=== PATIENT | female | born 1975 | race Caucasian/White ===

== ENCOUNTER → 2021-02-01 | Outpatient (CLI) | payer BC ==
--- NOTE | 2021-02-01 09:07 | US ---
EXAMINATION TYPE: US abdomen complete DATE OF EXAM: 02/01/2021 COMPARISON: NONE CLINICAL HISTORY: R11.2 Nausea and vomiting. EXAM MEASUREMENTS: Liver Length: 14.0 cm Gallbladder Wall: 0.2 cm CBD: 0.2 cm Spleen: 10.9 cm Right Kidney: 9.9 x 3.7 x 4.9 cm Left Kidney: 10.4 x 4.0 x 4.4 cm Pancreas: Obscured by bowel gas Liver: wnl Gallbladder: cholelithiasis without wall thickening Evidence for sonographic Rutherford's sign: No CBD: wnl Spleen: wnl Right Kidney: No hydronephrosis or masses seen Left Kidney: No hydronephrosis or masses seen Upper IVC: wnl Abd Aorta: wnl The liver is homogenous. The intrahepatic portion of the IVC and proximal abdominal aorta are within normal limits. Common bile duct is unremarkable. The visualized portions of the pancreas are homo genous. The spleen is unremarkable. Kidneys are symmetric and free of hydronephrosis. No renal les ions are seen. IMPRESSION: Cholelithiasis.
== END | disposition home or self-care (01) ==
LOC: RADUSWWP 07:27
PROVIDERS: ATTEND Internal Medicine
DX: K80.20 Calculus of gallbladder without cholecystitis without obstruction (principal)
CPT/HCPCS: 76700

== ENCOUNTER 2021-08-10 08:44 | Day surgery (SDC) | payer BC ==
[2021-08-08 13:46] VITALS: BMI 39.5
--- NOTE | 2021-08-08 16:52 | P.HPOB ---
History of Present Illness H&P Date: 08/08/21 Chief Complaint: Dysfunctional uterine bleeding Care is a 45-year-old female that is had dysfunctional bleeding for a number of months. Earlier in the year it had gotten point where we had scheduled or plan to do endometrial sampling but at that time she declined. We are now rescheduling and she is undergoing D&C with hysteroscopy. There was suspected 1.2 cm polyp on a ultrasound in April 2021. Uterus otherwise was slightly enlarged but no other adnexal masses or changes are noted. We will plan D&C with hysteroscopy and weight result to formulate final plan of care Past Medical History Additional Past Medical History / Comment(s): Varicose veins, edema BLE. Hx very heavy menses, c/o pain LLQ abd. History of Any Multi-Drug Resistant Organisms: None Reported Past Surgical History: Section, Tubal Ligation Additional Past Surgical History / Comment(s): C-S x2 Past Anesthesia/Blood Transfusion Reactions: No Reported Reaction Smoking Status: Former smoker - Past Family History Father Family Medical History: Cancer Additional Family Medical History / Comment(s): prostate cancer Medications and Allergies Home Medications Medication Instructions Recorded Confirmed Type No Known Home Medications 08/08/21 08/08/21 History Allergies Allergy/AdvReac Type Severity Reaction Status Date / Time latex Allergy blistered Verified 08/08/21 13:29 skin Exam Osteopathic Statement: *. No significant issues noted on an osteopathic structural exam other than those noted in the History and Physical/Consult. Intake and Output 08/08/21 08/08/21 08/08/21 06:59 14:59 22:59 Other: Weight 117.934 kg - OBG Physical Exam Breast: both: normal (no masses) Abdomen: bowel sounds normal, no diffuse tenderness, no bruit present, no guarding noted, no hepatomegaly, no splenomegaly, no mass Vulva: both: normal Vagina: normal moisture, no discharge Cervix: no lesion, no discharge Uterus: normal size, normal contour Adnexa: both: normal Anus/Rectum: normal perianal skin, no rectal mass, no hemorrhoids, heme negative
--- NOTE | 2021-08-10 08:34 | P.OP ---
Date of Procedure: 08/10/21 Preoperative Diagnosis: Thickened endometrium/suspected polyp Postoperative Diagnosis: Same Procedure(s) Performed: D&C with hysteroscopy Anesthesia: [id number] Surgeon: Lance Stevenson Estimated Blood Loss (ml): 4 IV fluids (ml): 400 Pathology: other (Uterine curettings) Condition: stable Disposition: same day Operative Findings: Pathology pending Description of Procedure: Lora was taken to the operating suite where a general anesthetic was found be adequate. She was prepped and draped in the normal sterile fashion and placed in dorsal lithotomy position. Initially a speculum was inserted in vagina and the anterior lip of the cervix identified and grasped with an Allis clamp. Cervix was then dilated. Camera was inserted and the polyp was visualized. Completed camera was removed and sharp curettings of endometrium were obtained. All tissues collected, placed on Telfa and sent to pathology for evaluation. At the conclusion procedure, all incidents removed sponge, lap, needle counts were all correct 2. Age was then taken to the recovery room in stable and satisfactory condition. Plan - Discharge Summary Discharge Rx Participant: Yes New Discharge Prescriptions: New Ibuprofen [Motrin] 600 mg PO Q6HR PRN #30 tab PRN Reason: Pain Discharge Medication List Ibuprofen [Motrin] 600 mg PO Q6HR PRN #30 tab 08/10/21 [Rx] Follow up Appointment(s)/Referral(s): Lance Stevenson DO [Doctor of Osteopathic Medicine] - 2 Weeks Activity/Diet/Wound Care/Special Instructions: No Heavy lifting, limit stairs and driving, and pelvic rest. If any high temperatures, heavy bleeding, or severe pain call my office Discharge Disposition: HOME SELF-CARE
[~2021-08-10 08:44] MED LIST: DEXAMETHASONE SOD PHOSPHATE 4 MG/ML 1 ML VIAL IV ONE; DEXAMETHASONE SOD PHOSPHATE 4 MG/ML 1 ML VIAL ONE; HYDROmorphone 0.5 MG/0.5 ML SYRINGE IVP PRN; IV FLUID CONTINUATION 1,000 ML IV ONE; KETOROLAC 15 MG/ML 1 ML VIAL ONE; LACTATED RINGERS 1,000 ML IV SCH; LIDOCAINE 1% INJ 10MG/ML (20 ML MDV) ONE; MIDAZOLAM 2 MG/2 ML VIAL ONE; ONDANSETRON 4 MG/2 ML VIAL IVP ONE; ONDANSETRON 4 MG/2 ML VIAL ONE; PROPOFOL 10 MG/ML 20 ML VIAL IV ONE; Pre Op ABX Message 1 EACH MISC MISCELLANE ONE; fentaNYL (PF) 50 MCG/ML 2 ML AMP ONE
[2021-08-10 08:47] VITALS: TEMP 96.9
[2021-08-10] MEDS ORDERED: LACTATED RINGERS 1,000 ML IV ONE ×4 (09:18→13:39)
[2021-08-10 09:48] VITALS: PULSE 57
[2021-08-10 10:17] VITALS: BP 120/83; RESP 18
== END 2021-08-10 10:36 | disposition home or self-care (01) ==
LOC: OR 08:44
PROVIDERS: ATTEND Obstetrics & Gynecology
DX: R93.89 Abnormal findings on diagnostic imaging of other specified body structures (principal); I83.90 Asymptomatic varicose veins of unspecified lower extremity; Z87.891 Personal history of nicotine dependence; Z91.040 Latex allergy status
CPT/HCPCS: 81025; 58558; J2250; J1100; J2405; J2001; J3010; J1885; J2704; J1170; 88305

== ENCOUNTER → 2021-09-27 | Outpatient (CLI) | payer BC ==
[2021-09-27 13:19] VITALS: BP 140/83; PULSE 80; RESP 16; TEMP 98.1; BMI 44.6
--- NOTE | 2021-09-27 13:29 | P.BASOAP ---
Subjective Progress Note Date: 09/27/21 Principal diagnosis: Morbid obesity patient comes for evaluation today. She has not been seen in many years. The patient says that starting late 2019 she had issues of frequent vomiting, regurgitation, and nighttime cough. She says this lasted for approximately 6 months and then went for an EGD and colonoscopy. Patient was felt to have a tight band and the endoscopist apparently loosened her band. She states he took one half of the amount of fluid out. She does not recall how much fluid was in there however. Patient has gained approximately 100 pounds since that occurred. She wants fluid added back to the band. Objective - Vital Signs Vital signs: Vital Signs Temp 98.1 F 09/27/21 13:13 Pulse 80 09/27/21 13:13 Resp 16 09/27/21 13:13 BP 140/83 09/27/21 13:13 Pulse Ox Intake & Output 09/26/21 09/27/21 09/27/21 18:59 06:59 18:59 Weight 133.356 kg - Exam Abdomen: Soft, nontender, nondistended Assessment/Plan (1) Morbid obesity with BMI of 40.0-44.9, adult Narrative/Plan: Options reviewed. Will access the patient's band. We'll proceed with band adjustment. Esophagram if any further issues develop. The patient's lap band port was palpated. The site was aseptically prepped. The Herring needle was advanced into the port. The port was aspirated. A proximally 5 mL was present in the band. 2 mL was then added. Pressure was held and a sterile dressing was applied. Plan: Date: 09/27/21 Initial Weight: 145.15 kg Initial BMI: 48.6 Current Weight: 133.356 kg Current BMI: 44.6 Type of Surgery: Adjustable Gastric Banding Total Volume in Band: Previous Volume: Volume Removed: Volume Added: Band Size:
== END ==
LOC: BARWHC3 12:17
PROVIDERS: ATTEND Surgery
DX: E66.01 Morbid (severe) obesity due to excess calories (principal); Z46.51 Encounter for fitting and adjustment of gastric lap band; Z68.41 Body mass index [BMI] 40.0-44.9, adult; Z91.040 Latex allergy status
CPT/HCPCS: 99212

== ENCOUNTER 2021-09-28 22:02 | Emergency (ER) | payer BC ==
--- NOTE | 2021-09-28 22:45 | XR ---
EXAMINATION TYPE: XR chest 2V DATE OF EXAM: 09/28/2021 COMPARISON: NONE HISTORY: Chest pain TECHNIQUE: 2 views FINDINGS: Heart and mediastinum are normal. Lungs are clear. Diaphragm is normal. Bony thorax is inta ct IMPRESSION: Normal chest.
[2021-09-28 23:38] LABS: Anisocytosis Slight; Basophils # (A) 0.1 k/uL (0-0.2); Basophils % (A) 1 %; Eosinophils # (A) 0.2 k/uL (0-0.7); Eosinophils % (A) 3 %; HCT 34.5 % (34.0-46.0); Hypochromasia Moderate; Lymphocytes # (A) 2.1 k/uL (1.0-4.8); Lymphocytes % (A) 33 %; MCHC 31.9 g/dL (31.0-37.0); MCV 75.2 fL (80.0-100.0); Mean Platelet Volume 6.7; Microcytosis Moderate; Monocytes # (A) 0.4 k/uL (0-1.0); Monocytes % (A) 6 %; Neutrophils # (A) 3.6 k/uL (1.3-7.7); Neutrophils % (A) 56 %; Platelet Count 314 k/uL (150-450); RDW 17.2 % (11.5-15.5); WBC 6.4 k/uL (3.8-10.6)
[2021-09-28 23:52] LABS: INR 0.9 (<1.2)
[2021-09-28 23:53] LABS: ALT 11 U/L (4-34); AST 21 U/L (14-36); African American GFR (CKD) >90 (>60 ml/min/1.73 sqM); Albumin 3.9 g/dL (3.5-5.0); Alkaline Phosphatase 56 U/L (38-126); Anion Gap 5 mmol/L; Blood Urea Nitrogen 13 mg/dL (7-17); Calcium 9.1 mg/dL (8.4-10.2); Carbon Dioxide 26 mmol/L (22-30); Chloride 105 mmol/L (98-107); Glucose 97 mg/dL (74-99); Magnesium 2.1 mg/dL (1.6-2.3); Non-African American GFR(CKD) 86 (>60 ml/min/1.73 sqM); Partial Thromboplastin Time 23.1 sec (22.0-30.0); Potassium 4.5 mmol/L (3.5-5.1); Prothrombin Time 10.3 sec (9.0-12.0); Sodium 136 mmol/L (137-145); Total Bilirubin 0.4 mg/dL (0.2-1.3); Total Protein 7.2 g/dL (6.3-8.2)
[2021-09-29 02:17] VITALS: RESP 18
[2021-09-29] MEDS ORDERED: ASPIRIN 81 MG PO STA (02:18)
--- NOTE | 2021-09-29 02:18 | ED ---
General Adult HPI - General Chief complaint: Chest Pain Stated complaint: Chest Pain, left arm pain Time Seen by Provider: 09/29/21 02:02 Source: patient, RN notes reviewed, old records reviewed Mode of arrival: ambulatory Limitations: no limitations - History of Present Illness Initial comments: Patient is a 24-year-old female with past medical history remarkable for lap band procedure receives iron infusions presents emergency Department complaining of chest pain. She states it started at approximately 1 PM today. She received an iron infusion yesterday. She left arm pain yesterday and it progressed to some left-sided chest pain earlier today. He was intermittent with no known palliative or provocative factors. By time I evaluated the patient, she states that it is much improved. She denies any associated dyspnea, abdominal pain, nausea, vomiting, lightheadedness. States the pain is primarily near her left shoulder at this time. Denies any history of blood clots. Has no other acute complaints at this time. Was not vaccinated for COVID-19 but denies any fevers, chills, cough. I evaluated the patient and she was placed in a room, after workup was completed. - Related Data Previous Rx's Medication Instructions Recorded Ibuprofen [Motrin] 600 mg PO Q6HR PRN #30 tab 08/10/21 Allergies Allergy/AdvReac Type Severity Reaction Status Date / Time latex Allergy blistered Verified 08/08/21 13:29 skin Review of Systems ROS Statement: Those systems with pertinent positive or pertinent negative responses have been documented in the HPI. Review of Systems: CONST: Denies fever EYES: Denies blurry vision ENT: Denies nasal congestion C/V: Endorses chest pain RESP: Denies shortness of breath GI: Denies abdominal pain : Denies dysuria SKIN: Denies rash. MSK: Denies joint pain. NEURO: Denies headache ROS Other: All systems not noted in ROS Statement are negative. Past Medical History Past Medical History: No Reported History History of Any Multi-Drug Resistant Organisms: None Reported Past Surgical History: Bariatric Surgery, Section Additional Past Surgical History / Comment(s): lap band 2009 Past Anesthesia/Blood Transfusion Reactions: No Reported Reaction Past Psychological History: No Psychological Hx Reported Smoking Status: Never smoker, Unknown if ever smoked Past Alcohol Use History: None Reported Past Drug Use History: None Reported General Exam - General Exam Comments Initial Comments: General: Appears in no acute distress. HEAD: Normal with no signs of head trauma. EYES: PERRLA, EOMI, conjunctiva normal, no discharge. ENT: Hearing grossly intact, normal oropharynx. RESPIRATORY: Clear breath sounds bilaterally. No wheezes, rales, or rhonchi. C/V: Regular rate and rhythm. S1 and S2 auscultated, no edema, peripheral pulses 2+ and intact throughout. Chest pain nonreproducible on palpation. ABD: Abd is soft, nontender, nondistended EXT: Normal range of motion, no obvious deformity SKIN: No rashes or lesions observed on exposed skin. NEURO: Alert and oriented 4. No focal deficits. Limitations: no limitations Course Vital Signs 09/28/21 09/28/21 09/29/21 22:09 23:16 02:13 Temperature 98.5 F 97.5 F L Pulse Rate 70 71 Respiratory 16 18 Rate Blood Pressure 156/80 152/90 O2 Sat by Pulse 100 100 Oximetry 09/29/21 02:18 Temperature 97.8 F Pulse Rate 64 Respiratory 18 Rate Blood Pressure 141/74 O2 Sat by Pulse 98 Oximetry Medical Decision Making - Medical Decision Making Based on patient's presentation and physical exam, I'm concerned for possible cardiopulmonary etiology for her current symptoms. She presents well after the 3 hour gabriel of onset of symptoms. Therefore significant troponin should be sufficient. Laboratory studies were already obtained prior to me evaluating her. I did order her an aspirin. EKG showed no signs of acute ischemia. Chest x-ray showed no acute cardiopul monary process. Laboratory studies remarkable for negative troponin. Patient has a chronic neck acidic anemia with hemoglobin of 11.0. Remainder of the labs are unremarkable. On reevaluation, patient states that her chest pain is improved. She would like to go home. Heart score is low at 2. I believe this is reasonable. I instructed the patient to follow up with their PCP in the next 3 days. I explained that the patient should return to the emergency department if they ex perience any worsening symptoms. Strict return precautions were discussed with the patient. The patient expressed understanding of these instructions. I answered all questions that the patient had. The patient was discharged home in good condition with their prescriptions and follow up information. - Lab Data Result diagrams: 09/28/21 23:24 09/28/21 23:24 Lab Results 09/28/21 09/28/2122 Range/Units 23:24 23:24 23:24 WBC 6.4 (3.8-10.6) k/uL RBC 4.60 (3.80-5.40) m/uL Hgb 11.0 L (11.4-16.0) gm/dL Hct 34.5 (34.0-46.0) % MCV 75.2 L (80.0-100.0) fL MCH 24.0 L (25.0-35.0) pg MCHC 31.9 (31.0-37.0) g/dL RDW 17.2 H (11.5-15.5) % Plt Count 314 (150-450) k/uL MPV 6.7 Neutrophils % 56 % Lymphocytes % 33 % Monocytes % 6 % Eosinophils % 3 % Basophils % 1 % Neutrophils # 3.6 (1.3-7.7) k/uL Lymphocytes # 2.1 (1.0-4.8) k/uL Monocytes # 0.4 (0-1.0) k/uL Eosinophils # 0.2 (0-0.7) k/uL Basophils # 0.1 (0-0.2) k/uL Hypochromasia Moderate Anisocytosis Slight Microcytosis Moderate PT 10.3 (9.0-12.0) sec INR 0.9 (<1.2) APTT 23.1 (22.0-30.0) sec Sodium 136 L (137-145) mmol/L Potassium 4.5 (3.5-5.1) mmol/L Chloride 105 (98-107) mmol/L Carbon Dioxide 26 (22-30) mmol/L Anion Gap 5 mmol/L BUN 13 (7-17) mg/dL Creatinine 0.83 (0.52-1.04) mg/dL Est GFR (CKD-EPI)AfAm >90 (>60 ml/min/1.73 sqM) Est GFR (CKD-EPI)NonAf 86 (>60 ml/min/1.73 sqM) Glucose 97 (74-99) mg/dL Calcium 9.1 (8.4-10.2) mg/dL Magnesium 2.1 (1.6-2.3) mg/dL Total Bilirubin 0.4 (0.2-1.3) mg/dL AST 21 (14-36) U/L ALT 11 (4-34) U/L Alkaline Phosphatase 56 (38-126) U/L Troponin I (0.000-0.034) ng/mL Total Protein 7.2 (6.3-8.2) g/dL Albumin 3.9 (3.5-5.0) g/dL 09/28/21 Range/Units 23:24 WBC (3.8-10.6) k/uL RBC (3.80-5.40) m/uL Hgb (11.4-16.0) gm/dL Hct (34.0-46.0) % MCV (80.0-100.0) fL MCH (25.0-35.0) pg MCHC (31.0-37.0) g/dL RDW (11.5-15.5) % Plt Count (150-450) k/uL MPV Neutrophils % % Lymphocytes % % Monocytes % % Eosinophils % % Basophils % % Neutrophils # (1.3-7.7) k/uL Lymphocytes # (1.0-4.8) k/uL Monocytes # (0-1.0) k/uL Eosinophils # (0-0.7) k/uL Basophils # (0-0.2) k/uL Hypochromasia Anisocytosis Microcytosis PT (9.0-12.0) sec INR (<1.2) APTT (22.0-30.0) sec Sodium (137-145) mmol/L Potassium (3.5-5.1) mmol/L Chloride (98-107) mmol/L Carbon Dioxide (22-30) mmol/L Anion Gap mmol/L BUN (7-17) mg/dL Creatinine (0.52-1.04) mg/dL Est GFR (CKD-EPI)AfAm (>60 ml/min/1.73 sqM) Est GFR (CKD-EPI)NonAf (>60 ml/min/1.73 sqM) Glucose (74-99) mg/dL Calcium (8.4-10.2) mg/dL Magnesium (1.6-2.3) mg/dL Total Bilirubin (0.2-1.3) mg/dL AST (14-36) U/L ALT (4-34) U/L Alkaline Phosphatase (38-126) U/L Troponin I <0.012 (0.000-0.034) ng/mL Total Protein (6.3-8.2) g/dL Albumin (3.5-5.0) g/dL - EKG Data -: EKG Interpreted by Me EKG Comments: 12-lead Electrocardiogram Interpretation Note EKG was reviewed and interpreted by myself. 12-lead ECG performed at 2314 is interpreted by me as revealing normal sinus rhythm at a rate of 69 beats per minute. [place] is normal. MO interval is 169 ms, QRS duration is 85 ms, QTc is 411 ms.. There is an isolated T-wave inversion in lead V2 with no reciprocal changes or other ST segment or T-wave changes.. R wave progression across the precordium was satisfactory. By my interpretation this EKG is non-diagnostic for acute ischemia. Disposition Clinical Impression: Chest pain of unknown etiology Disposition: HOME SELF-CARE Condition: Good Instructions (If sedation given, give patient instructions): Chest Pain (ED) Is patient prescribed a controlled substance at d/c from ED?: No Referrals: Tamika Elise MD [Primary Care Provider] - 1-2 days
[2021-09-29 02:26] VITALS: BP 141/74; PULSE 64; TEMP 97.8
== END 2021-09-29 02:34 | disposition home or self-care (01) ==
LOC: EC 22:02
DX: R07.89 Other chest pain (principal); Z79.1 Long term (current) use of non-steroidal anti-inflammatories (NSAID)
CPT/HCPCS: 36415; 71046; 80053; 83735; 84484; 85025; 85610; 85730; 93005; 99285

== ENCOUNTER → 2021-10-04 | Outpatient (CLI) | payer BC ==
[2021-10-04 08:36] VITALS: BP 117/65; PULSE 53; TEMP 98; BMI 51.5
--- NOTE | 2021-10-04 08:46 | P.BASOAP ---
Subjective Progress Note Date: 10/04/21 Principal diagnosis: Chest pain 46-year-old female known to our service. One week ago the patient had a lap band adjustment. This was the first lap band fill that she had had many years. We added 2 mL for a total of 7 mL at that time. Patient says she also had an iron infusion perform a day. Later that evening the patient had mild chest pain and that pain radiated to her left arm and she started having involuntary spasms of her finger and hand on the left side. Went to the ER for evaluation. She was discharged following that. The patient says she does notice improved restriction. She states it does not feel too tight. No nausea or vomiting, no regurgitation, no night cough, no food getting caught at all. Patient has lost 3 pounds. Objective - Vital Signs Vital signs: Vital Signs Temp 98 F 10/04/21 08:34 Pulse 53 L 10/04/21 08:34 Resp BP 117/65 10/04/21 08:34 Pulse Ox Intake & Output 10/03/21 10/04/21 10/04/21 18:59 06:59 18:59 Weight 131.995 kg - Exam Abdomen: Soft, nontender, nondistended Assessment/Plan (1) Morbid obesity with BMI of 40.0-44.9, adult Narrative/Plan: Patient and I discussed the options. Etiology for the patient's symptoms unclear. I did offer loosening the band. After discussion we decided to keep band where it is since the restriction seems to be improved and she is not having any other symptoms. She will contact me with any changes. Plan: Date: 10/04/21 Initial Weight: 145.15 kg Initial BMI: 56.7 Current Weight: 131.995 kg Current BMI: 51.5 Type of Surgery: Total Volume in Band: 7 Previous Volume: Volume Removed: Volume Added: Band Size:
== END ==
LOC: BARWHC3 07:19
PROVIDERS: ATTEND Surgery
DX: E66.01 Morbid (severe) obesity due to excess calories (principal); Z98.84 Bariatric surgery status; Z68.43 Body mass index [BMI] 50.0-59.9, adult; Z91.040 Latex allergy status
CPT/HCPCS: 99211

== ENCOUNTER → 2023-01-16 | Outpatient (CLI) | payer BC ==
[2023-01-16 13:41] VITALS: BP 128/84; PULSE 84; TEMP 98.3; BMI 41.1
--- NOTE | 2023-01-16 14:27 | P.BASOAP ---
Subjective Progress Note Date: 01/16/23 Principal diagnosis: Morbid obesity Patient here for reevaluation. Was last seen in September of last year. At the time we considered loosening her band because she was having some chest pain. She did not want fluid removed and felt the restriction was good at the time. Her symptoms improved around that same time. Today she comes back in after losing 21 pounds. Says she is now having some regurgitation a few times per month. Some bad heartburn recently. Patient is frustrated that she has not been able to lose more weight. No recent upper GI. Objective - Vital Signs Vital signs: Vital Signs Temp 98.3 F 01/16/23 13:33 Pulse 84 01/16/23 13:33 Resp BP 128/84 01/16/23 13:33 Pulse Ox FiO2 Intake & Output 01/15/23 01/16/23 01/16/23 18:59 06:59 18:59 Weight 122.561 kg - Exam Abdomen: Soft, nontender, nondistended Assessment/Plan (1) Morbid obesity with BMI of 40.0-44.9, adult Narrative/Plan: Patient with worsening reflux. Options reviewed with patient. Will proceed with loosening of the band at this time. We'll order a barium swallow as well. Patient I discussed the options of band removal and conversion to gastric bypass. Patient states she would like to avoid any further surgery. 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 The patient's lap band port was palpated. The site was aseptically prepped. The Herring needle was advanced into the port. A total of 1 ml of fluid was removed. The patient has a total of 6 mL left. Pressure was held and a sterile dressing was applied. Plan: Date: 01/16/23 Initial Weight: 145.15 kg Initial BMI: 48.6 Current Weight: 122.561 kg Current BMI: 41.1 Type of Surgery: Total Volume in Band: 7 Previous Volume: Volume Removed: Volume Added: Band Size:
--- NOTE | 2023-01-16 15:11 | FL ---
EXAMINATION TYPE: FL barium swallow DATE OF EXAM: 01/16/2023 3:01 PM COMPARISON: 07/29/2010 CLINICAL INDICATION:Female, 47 years old with history of R13.10 DYSPHAGIA, UNSPECIFIED; TECHNIQUE: The procedure was explained and patient history elicited. All patient questions were ans wered prior to start of procedure. Multiple spot fluoroscopic images of the esophagus were obtained a fter the oral ingestion of effervescent crystals and liquid barium as the contrast agent. Fluoroscopic time: 12 seconds Fluoroscopic images: 0 Radiographs taken: 51 DAP: 1436.8 mGym2 FINDINGS: The esophagus demonstrates normal primary and secondary peristalsis. The esophageal mucosa is smooth without evidence of focal stricture, ulceration, or abnormal outpouching. No gastroesophageal reflu x disease was identified. Gastric lap band appears in appropriate position, there is free flow contra st into the stomach. IMPRESSION: Free flow of contrast into the stomach. No evidence for stricture.
== END ==
LOC: BARWHC3 13:24
PROVIDERS: ATTEND Surgery
DX: E66.01 Morbid (severe) obesity due to excess calories (principal); R13.10 Dysphagia, unspecified; K21.9 Gastro-esophageal reflux disease without esophagitis; Z46.51 Encounter for fitting and adjustment of gastric lap band; Z68.41 Body mass index [BMI] 40.0-44.9, adult; Z91.040 Latex allergy status
CPT/HCPCS: 74220; 99213